=== PATIENT | female | born 1970 | race Caucasian/White ===

== ENCOUNTER 2019-06-24 14:08 | Inpatient (IN) | payer OTHER ==
[~2019-06-24] VITALS: Ht 157.5 cm; Wt 98.0 kg
[~2019-06-24 14:08] MED LIST: CELEXA40 MG PO; CETAPHIL473 ML TOP; DIFLUCAN150 MG; ESTRACE2 MG PO; EUCERIN CREME57 GM TOP; HYDROXYZINE HCL25 M2 PO; KETOCONAZOLE TOP; NORCO 5-325 TA1 EACH PO; PHENERGAN 25 MG25 M1 PO; VISTARIL 25 MG25 M1 PO; ZANTAC 150MG T150 M1 PO; ZYRTEC10 M5 PO
[2019-06-24 18:30] VITALS: BP 131/68
--- NOTE | 2019-06-24 18:33 | NUR ---
ASSESSMENT COMPLETE. PT ADMITTED WITH COLITIS AND POSS GI BLEED. PT TRASNFERRED FROM [facility]. PT IS ALERT AND ORIENTED X4. PT IS CRYING AND DRY HEAVING UPON ADMISSION. REPORT TAKEN FROM NURSE AT [facility], DR CAMPUZANO NOTIFIED OF PT BEING ADMITTED AND NEW ORDERS PLACED. PT HAS IV FLUIDS INFUSING. PHENERGAN GIVEN FOR NAUSEA. PT IS UP ONE ASSIST DUE TO WEAKNESS TO BSC. BLOOD NOTED IN STOOL. NEED STOOL AND URINE SAMPLE. PT IS ON ROOM AIR, VSS. SEE ASSESSMENT AND VITALS FOR OTHER DETAILS. JUSTEN AT BEDSIDE NOW. CALL LIGHT WITHIN REACH, WILL CONTINUE PLAN OF CARE
[2019-06-24 19:21] LABS: ABSOLUTE BASOPHILS 0.1 thou/uL (0.0-0.2); ABSOLUTE EOSINOPHILS 0.1 thou/uL (0.0-0.7); ABSOLUTE MONOCYTES 0.7 thou/uL (0.0-1.2); BASOPHILS 0.6 %; EOSINOPHILS 0.8 %; HEMATOCRIT 37.7 % (37.0-47.0); HEMOGLOBIN 12.6 gm/dL (12.0-15.0); LYMPHOCYTES 22.8 %; MCH 27.1 pg (26.0-34.0); MCHC 33.3 g/dL (28.0-37.0); MCV 81.3 fL (80.0-100.0); MONOCYTES 8.4 %; MPV 8.9 fl. (7.2-11.1); NUCLEATED RBCS 0 /100WBC; PLATELET COUNT* 193 thou/uL (150-400); POLYS 67.4 %; RBC 4.64 mil/uL (4.20-5.00); RDW-CV 12.4 % (10.5-14.5); WBC 8.9 thou/uL (4.0-11.0)
[2019-06-24 19:26] LABS: CALCIUM 8.4 mg/dL (8.5-10.1); CREATININE 0.6 mg/dL (0.6-1.3)
[2019-06-24 19:31] LABS: ALBUMIN 2.7 g/dL (3.4-5.0); TOTAL BILIRUBIN 0.6 mg/dL (<0.1-1.0); TOTAL PROTEIN 5.8 g/dL (6.4-8.2)
[2019-06-24 21:36] LABS: URINE BILIRUBIN NEGATIVE (Negative); URINE BLOOD 1+ (Negative); URINE CLARITY CLEAR; URINE COLOR YELLOW; URINE GLUCOSE-RANDOM NEGATIVE (Negative); URINE LEUKOCYTES NEGATIVE (Negative); URINE NITRITE NEGATIVE (Negative); URINE PROTEIN NEGATIVE (Negative); URINE SPECIFIC GRAVITY 1.025 (1.005-1.030); URINE UROBILINOGEN 0.2 E.U./dl (0.2-1.0)
[2019-06-24 21:38] LABS: URINE KETONES 3+ (Negative)
[2019-06-24 21:40] VITALS: BP 146/67
[2019-06-24 21:44] LABS: AMP/METHAMP Negative (Negative); BARBITURATES Negative (Negative); BENZODIAZEPINES Negative (Negative); COCAINE Negative (Negative); METHADONE Negative (Negative); OPIATES Negative (Negative); PCP Negative (Negative); THC Negative (Negative)
[2019-06-24 21:46] LABS: BACTERIA None Seen /HPF (None Seen); CASTS None Seen /LPF (None Seen); CRYSTALS None Seen /LPF (None Seen); SQUAMOUS 4-10 Moderate /LPF (0-3); URINE RBC 0-2 Rare /HPF (0-2); URINE WBC None Seen /HPF (0-5)
[2019-06-25 05:13] LABS: ABSOLUTE EOSINOPHILS 0.1 thou/uL (0.0-0.7); ABSOLUTE LYMPHOCYTES 1.8 thou/uL (0.8-5.3); ABSOLUTE MONOCYTES 0.8 thou/uL (0.0-1.2); ABSOLUTE NEUTROPHILS 4.9 thou/uL (1.6-8.1); BASOPHILS 0.5 %; EOSINOPHILS 1.8 %; HEMATOCRIT 34.7 % (37.0-47.0); HEMOGLOBIN 11.7 gm/dL (12.0-15.0); LYMPHOCYTES 23.2 %; MCH 27.2 pg (26.0-34.0); MCHC 33.7 g/dL (28.0-37.0); MCV 80.7 fL (80.0-100.0); MONOCYTES 9.9 %; MPV 8.8 fl. (7.2-11.1); NUCLEATED RBCS 0 /100WBC; PLATELET COUNT* 184 thou/uL (150-400); POLYS 64.6 %; RDW-CV 12.3 % (10.5-14.5); WBC 7.6 thou/uL (4.0-11.0)
[2019-06-25 05:38] LABS: PREALBUMIN 15.9 mg/dL (18.0-35.7)
[2019-06-25 05:43] LABS: ALBUMIN 2.5 g/dL (3.4-5.0); CALCIUM 8.3 mg/dL (8.5-10.1); CREATININE 0.6 mg/dL (0.6-1.3); POTASSIUM 3.1 mmol/L (3.5-5.1); TOTAL BILIRUBIN 0.4 mg/dL (<0.1-1.0); TOTAL PROTEIN 5.4 g/dL (6.4-8.2)
--- NOTE | 2019-06-25 06:20 | NUR ---
PATIENT SEEMED TO DO WELL ON ZOFRAN AND 50 NCG FENTANYL THROUGH THE NIGHT. SHE WAS ABLE TO REST AND REPORTED LESSENING OF NAUSEA AND PAIN. SHE IS HAVING LOOSE STOOLS AND HAS NOT ATE SINCE THURSDAY. SHE DID REPORT A HEADACHE AND I GAVE HER TYLENOL FOR PAIN. SHE IS TO SEE GI DOCTOR TODAY.
[2019-06-25 08:00] VITALS: BP 123/61
[2019-06-25 16:35] VITALS: BP 133/68
--- NOTE | 2019-06-25 18:45 | NUR ---
ASSUMED CARE OF PATIENT AT APPROX 0730. ALERT AND ORIENTED X4. ASSESSMENT COMPLETED AND CHARTED. VSS ON ROOM AIR. PAIN MINIMAL AND MANAGED WITH TYLENOL. FLUIDS AND ANTIBIOCS INFUSED ORDERED. PATING HAVING NAUSEA AND VOMITING THIS MORNING, GAVE ZOFRAN AND PROMETHAZINE WITH RELIEF EXPRESSED. PATIENT ON CLEAR LIQUIDS THIS MORNING. PATIENT ASKED TO ADVANCE DIET FOR LUNCH, FULL LIQUIDS ORDERED AND PATIENT TOLERATED WELL. CHANGED DIET TO REGULAR FOR DINNER, ORDERED PATIENT FULL LIQUIDS, MASHED POTATOES AND MAC N CHEESE FOR DINNER, PATIENT TOLERATED THIS WELL. PATIENT UP AD RAYMOND IN THE ROOM. STOOLS HAVE SLOWED DOWN AND ARE NOW SOFT. PATIENT HAD A SHOWER TODAY. CALL LIGHT WITHIN REACH. HOURLY ROUNDS COMPLETED. NURSING WILL CONTINUE TO MONITOR.
[2019-06-25 19:50] VITALS: BP 100/49
[2019-06-26 04:25] LABS: ABSOLUTE EOSINOPHILS 0.1 thou/uL (0.0-0.7); ABSOLUTE LYMPHOCYTES 1.5 thou/uL (0.8-5.3); ABSOLUTE MONOCYTES 0.5 thou/uL (0.0-1.2); ABSOLUTE NEUTROPHILS 3.1 thou/uL (1.6-8.1); BASOPHILS 0.9 %; EOSINOPHILS 2.4 %; HEMATOCRIT 33.7 % (37.0-47.0); HEMOGLOBIN 11.5 gm/dL (12.0-15.0); LYMPHOCYTES 27.9 %; MCH 27.5 pg (26.0-34.0); MCHC 34.1 g/dL (28.0-37.0); MCV 80.7 fL (80.0-100.0); MONOCYTES 9.1 %; MPV 8.5 fl. (7.2-11.1); NUCLEATED RBCS 0 /100WBC; PLATELET COUNT* 207 thou/uL (150-400); POLYS 59.7 %; RBC 4.18 mil/uL (4.20-5.00); RDW-CV 12.6 % (10.5-14.5); WBC 5.3 thou/uL (4.0-11.0)
[2019-06-26 04:27] LABS: PROTIME 10.1 Seconds (9.20-11.50)
[2019-06-26 04:43] LABS: PREALBUMIN 16.2 mg/dL (18.0-35.7)
[2019-06-26 04:58] LABS: ALBUMIN 2.6 g/dL (3.4-5.0); CALCIUM 8.5 mg/dL (8.5-10.1); CREATININE 0.5 mg/dL (0.6-1.3); TOTAL BILIRUBIN 0.3 mg/dL (<0.1-1.0); TOTAL PROTEIN 5.7 g/dL (6.4-8.2)
[2019-06-26 05:07] LABS: POTASSIUM 2.9 mmol/L (3.5-5.1)
--- NOTE | 2019-06-26 05:40 | NUR ---
PT ALERT AND ORIENTED. VSS ON RA. ASSESSMENT DOCUMENTED. MEDS GIVEN PER EMAR. PT HAD ONE EMESIS THIS SHIFT. BELIEVES SHE DID NOT TOLERATE HER DINNER WELL. PT ENCOURAGED TO ADVANCE DIET SLOWLY. K+ CRITICAL AT 2.9 THIS AM. RESULT MESAGED TO DR URIBE. RIP PROTOCOL INITIATED. CALL LIGHT WITHIN REACH. HOURLY ROUNDINGS MADE. BENADRYL AND MELATONIN GIVEN THIS SHIFT. PT SAYS IT HELPED. PT SLEPT MOST OF SHIFT. WILL CONTINUE TO MONITOR.
[2019-06-26 07:18] LABS: HEPATITIS B SURFACE AG Negative (Negative)
[2019-06-26 08:00] VITALS: BP 139/69
[2019-06-26 19:19] LABS: IgG 493 mg/dL (700-1600); IgM 56 mg/dL (26-217)
[2019-06-26 19:50] VITALS: BP 125/70
--- NOTE | 2019-06-26 20:17 | NUR ---
UP AD RAYMOND IN ROOM. ALERT AND ORIENTED X4. DENIES NEED FOR PAIN MEDICATION. IV NAUSEA MEDICATION GIVEN WITH ONLY SOME RELIEF. DR NOTIFIED AND NEW ORDERS NOTED. NEW MEDICATION HELPFUL WITH NAUSEA. CONTINUES ON IV ANTIBIODICS WITHOUT ADVERSE REACTIONS. IV POTASSIUM INFUSING WITHOUT DIFFICULT. PATIENT REFUSED TO LET US START A SECOND IV, WANTS TO WAIT FOR PICC LINE ON 06/27. ATE SOME CLEAR LIQUIDS THIS EVENING. PROGRESSING TOWARD DISCHARGE GOAL. CALL LIGHT WITHIN REACH.
[2019-06-27 00:39] LABS: ABSOLUTE BASOPHILS 0.1 thou/uL (0.0-0.2); ABSOLUTE EOSINOPHILS 0.2 thou/uL (0.0-0.7); ABSOLUTE LYMPHOCYTES 2.4 thou/uL (0.8-5.3); ABSOLUTE MONOCYTES 0.8 thou/uL (0.0-1.2); ABSOLUTE NEUTROPHILS 4.3 thou/uL (1.6-8.1); BASOPHILS 0.6 %; EOSINOPHILS 3.1 %; HEMATOCRIT 36.4 % (37.0-47.0); HEMOGLOBIN 12.3 gm/dL (12.0-15.0); LYMPHOCYTES 31.3 %; MCH 27.3 pg (26.0-34.0); MCHC 33.8 g/dL (28.0-37.0); MCV 80.5 fL (80.0-100.0); MONOCYTES 10.3 %; MPV 8.4 fl. (7.2-11.1); NUCLEATED RBCS 0 /100WBC; PLATELET COUNT* 253 thou/uL (150-400); POLYS 54.7 %; RBC 4.52 mil/uL (4.20-5.00); RDW-CV 12.2 % (10.5-14.5); WBC 7.8 thou/uL (4.0-11.0)
[2019-06-27 00:46] LABS: CALCIUM 9.2 mg/dL (8.5-10.1); CREATININE 0.7 mg/dL (0.6-1.3); MAGNESIUM 1.7 mg/dL (1.8-2.4); POTASSIUM 4.3 mmol/L (3.5-5.1)
--- NOTE | 2019-06-27 07:41 | NUR ---
PT ALERT AND ORIENTED. VSS ON RA. ASSESSMENT DOCUMENTED. PT SAYS NAUSEA IS BEING CONTROLLED BETTER NOW. PT DENIES PAIN THIS SHIFT. K+ REPLACED AND IS 4.3. MG+ BEING REPLACED PER PROTOCOL. PICC LINE TODAY. TPN POSSIBLY TODAY. PT FEELS SHE MAY WANT TO TRY REGULAR DIET AGAIN. ISOLATION IN PLACE. MELATONIN GIVEN FOR SLEEP. PT SAYS SHE SLEPT GOOD BUT OFF AND ON. CALLL IGHT WITHIN REACH. HOURLY ROUNDINGS MADE. WILL CONTINUE TO MONITOR.
[2019-06-27 15:09] LABS: ANA INTERPRETATION Negative (Negative)
[2019-06-27 15:48] VITALS: BP 100/67
--- NOTE | 2019-06-27 17:56 | NUR ---
ASSESSMENT COMPLETE. PT ALERT AND ORIENTED X4. PT DENIES NEED FOR PAIN AND NAUSEA MEDICATION. TOLERATING SMALL AMOUNT OF FOOD. PT DRINKING WATER. ISOLATION IN PLACE. INFECTIOUS DISEASE. PT IS UP AD RAYMOND WITH STEADY GAIT. NEW IV PLACED WITH INFUSION IN LEFT FA. SEE ASSESSMENT AND VITALS FOR OTHER DETAILS. CALL LIGHT WITHIN REACH, WILL CONTINUE PLAN OF CARE
[2019-06-27 21:00] VITALS: BP 122/70
--- NOTE | 2019-06-28 06:56 | NUR ---
PATIENT SLEPT MOST OF THE NIGHT. PATIENT HAD NO COMPLAINTS OF PAIN OR NAUSEA. IV REMAINS SALINE LOCKED. PATIENT IS POSSIBLY GOING HOME TODAY. WILL CONTINUE TO MONITOR.
--- NOTE | 2019-06-28 10:15 | CON ---
[address] [address] CONSULTATION Name: RANDALL DAUGHERTY Room: [address] IN M.R.#: [id number] Admission: 06/24/19 Attend Phys: Keara Banks MD Discharge: Date of : 72 Report #: [id number] THIS REPORT FOR: //name// CC: KEARA Banks FAM unknown Priyank Vivar Kari Nicolas NP DATE OF SERVICE: 06/25/2019 REFERRING PHYSICIAN: Keara Banks MD REASON FOR CONSULTATIO N: Abdominal pain and bloody diarrhea. IMPRESSION: 1. Acute bloody diarrhea associated with nausea, vomiting, dehydration, abdominal pain -- suspect infectious colitis plus or minus ischemic colitis. 2. Abnormal stool culture positive for "Shigella-like toxin" 3. Elevated liver function tests of uncertain significance. 4. Gastroesophageal reflux disease. RECOMMENDATIONS: 1. Agree with the patient being on IV fluids, IV antibiotics, antiemetics, and parenteral pain medications. 2. We will add some Bentyl 10 mg p.o. every 4-6 hours as needed for lower abdominal cramping. 3. Await Infectious Disease input regarding isolation and whether or not to alert the health department of possible Shigella or toxic E. coli infection. 4. We will hold off on endoscopic evaluation of her lower GI tract for now, but if she does not continue to improve, she may need to undergo a colonoscopy as expected. I am hopeful that she will be improved with just IV fluids, IV antibiotics, etc. 5. We should also have her avoid any antidiarrheals whatsoever. 6. We would also discontinue Lovenox secondary to her bloody diarrhea. HISTORY OF PRESENT ILLNESS: The patient is a very pleasant 48-year-old white female who presented to [facility] with complaints of about 3-4 day history of abdominal pain associated with nausea, vomiting, diarrhea, and bloody stools. She had been feeling poorly for about 4 days before she went to the Emergency Room and was treated there with IV fluids. It is unclear whether or not she had any IV antibiotics or not, but in reviewing the records from their facility, it does appear that she was getting some IV Cipro and Flagyl. She has never had anything like this in the past, this is all acute in nature. Normal bowel frequency can be sometimes loose at times secondary to her previous cholecystectomy state. She was transferred from [facility] [place] [address] CONSULTATION Name: RANDALL DAUGHERTY Room: [address]#: [id number] Admission: 06/24/19 Attend Phys: Keara Banks MD Discharge: Date of : 72 Report #: [id number] input and she is now here for the same. She has no known family history of inflammatory bowel disease, colon polyps, or colon cancer. She has undergone endoscopic studies of her lower GI tract in the past, last of which was performed over 10 years ago. She has also had elevated liver function tests in the past and underwent a full diagnostic evaluation of the same and had a liver biopsy, which revealed steatohepatitis with minimal fibrosis. There was no evidence for autoimmune liver disease, primary bile duct disease, etc. ALLERGIES: PENICILLIN AND MORPHINE. MEDICATIONS: At home include estradiol, Flexeril, pantoprazole, citalopram, and p.r.n. ranitidine. PAST MEDICAL AND SURGICAL HISTORY: Remarkable for previous cholecystectomy. She has had history of elevated liver function tests as I mentioned above in the past. She had some problem with intermittent reflux, but nothing been severe. She also has problem with chronic itching of uncertain significance. She has some anxiety and depression. She had previous C-sections in the past. She had kidney stones with kidney stents and lithotripsy. She has had stone removal as well. She had appendectomy. SOCIAL HISTORY: The patient is . She does not smoke or drink. FAMILY HISTORY: Negative. PHYSICAL EXAMINATION: GENERAL: Pleasant 48-year-old white female who is awake and alert. CARDIOPULMONARY: Revealed a regular rate and rhythm. LUNGS: Clear. ABDOMEN: Soft. She was tender to touch and percussion to the right lower quadrant and right upper quadrant. She has voluntary guarding, but no involuntary guarding. LABORATORY DATA: From the 06/24/2019 revealed a white count of 8.9, hemoglobin 12.6, platelet count of 193,000. Her sodium 137, potassium 3.0, chloride 103, bicarbonate is 20, BUN 6, creatinine 0.6. Her total bilirubin is 0.6, alkaline phosphatase 192, AST 65, ALT 203. These were markedly elevated prior to admission at [facility]. CT scan of the abdomen and pelvis was sent over for review, and I reviewed it and agreed with the findings of thickening of the ascending and transverse colon. I did not see any pericolonic stranding. I did not see anything to suggest [place] [address] CONSULTATION Name: RANDALL DAUGHERTY Room: [address] IN M.Tressa.#: [id number] Admission: 06/24/19 Attend Phys: Keara Banks MD Discharge: Date of : 72 Report #: [id number] DISCUSSION: 1. At the present time, I would proceed with symptomatic and supportive care as well as IV antibiotics. Await Infectious Disease input. 2. We will hold off on endoscopic evaluation of her lower GI tract and follow her while she is in the hospital. I have discussed the plans with the patient as well as her at the bedside and they are agreeable to the same. <ELECTRONICALLY SIGNED> By: Clement Glass DO 06/28/19 1015 [id number] [id number] Glass DO /nt
[2019-06-28] MEDS ORDERED: HYDROXYZINE PAM25 M1 PO (10:45)
[2019-06-28 10:46] VITALS: BP 122/70
[2019-06-28] MEDS ORDERED: FLORASTOR250 MG PO (11:31)
[2019-06-28 11:32] VITALS: BP 122/70
[2019-06-28] MEDS ORDERED: BENTYL 10 MG CA10 M1 PO (11:40)
[2019-06-28 12:31] VITALS: BP 122/70
--- NOTE | 2019-06-28 12:32 | NUR ---
ASSESSMENT COMPLETE. PT DC HOME. PRESCRIPTION AND DC INSTRUCTIONS GIVEN. ALL BELONGINGS SENT WITH PT. PT WILL FOLLOW UP WITH DR HORVATH IN [address] Kinney IN 4-6 WEEKS.
--- NOTE | 2019-07-31 15:03 | CON ---
[address] [address] CONSULTATION Name: RANDALL DAUGHERTY Room: [address] IN .#: [id number] Admission: 06/24/19 Attend Phys: Corona Banks MD Discharge: 06/28/19 Date of : 72 Report #: [id number] THIS REPORT FOR: //name// CC: Corona Banks [facility] unknown DATE OF SERVICE: 06/26/2019 CONSULTATION: Infectious diseases. HISTORY OF PRESENT ILLNESS: The patient is a 48-year-old white female who presents to [facility] ER on 06/23/2019 complaining of 2 days of nausea; vomiting; diarrhea, sometimes bloody and severe abdominal pain. The patient had elevated liver function tests and was toxic. She was admitted to the hospital there. Workup showed a Shigella toxin producing Enterobacteriaceae. She was empirically started on Cipro plus Flagyl. She was transferred to [place] were Infectious Disease and GI specialties are available. The patient is generally in good health without a lot of ongoing medical problems. She does have a history of kidney stones and has had a stent. She has anxiety. PAST SURGICAL HISTORY: Includes cholecystectomy, section, and then hysterectomy. ALLERGIES: THE PATIENT HAS ALLERGIES TO PENICILLIN AND MORPHINE. FAMILY HISTORY: Noncontributory. SOCIAL HISTORY: The patient is . [place] . No one in her [place] has been ill with a similar illness. She does not use tobacco, alcohol nor drugs. She has regular exposure to a number of animals including chickens, pigs, dogs, cats, llama. None of the animals have been particularly sick. The patient has no travel history. No significant tick bite or mosquito bite history. REVIEW OF SYSTEMS: The patient states she is already feeling much better. She was having fevers and chills. They were not measured. The patient was not complaining of headache, sinus congestion, sore throat, trouble swallowing. The patient is not having cough, chest pain, shortness of breath. The patient was complaining of nausea, vomiting, retching, severe abdominal pain, mostly in the right and left lower quadrants, as well as some bloody stool. No urinary symptoms. No pain in the extremities. Since receiving fluids and electrolyte replacement as well as medicine for pain, nausea and fever, the patient is feeling better, but still [place] [address] CONSULTATION Name: RANDALL DAUGHERTY Room: [address]#: [id number] Admission: 06/24/19 Attend Phys: Corona Banks MD Discharge: 06/28/19 Date of : 72 Report #: [id number] PHYSICAL EXAMINATION: GENERAL: The patient appears comfortable, not in any distress. VITAL SIGNS: Show the patient has been afebrile since coming to [facility]. SKIN: No rash nor lesions. ENT: Negative. MENTAL STATUS: Normal and appropriate. NECK: Supple. HEART: Sounds S1, S2. LUNGS: Clear. ABDOMEN: Belly is obese, soft without any significant tenderness. There is no guarding. No rebound. I cannot appreciate any mass nor organomegaly. EXTREMITIES: Unremarkable. LABORATORY DATA: The CBC here shows white count 5.3, hemoglobin 11.5, platelet 207,000. Electrolytes show sodium 139, potassium down to 2.9. It was 4.0 at [facility] 2 days ago. Chloride 104, bicarbonate 28, BUN 4, creatinine 0.5, glucose 109. Liver function tests are elevated. At [place], the alkaline phosphatase was 313. It is down to 143 two days later and the ALT has gone from 428 to 129, the AST has gone from [address] scan done at [place] showed thickening and stranding of the ascending and transverse colon suggestive of acute colitis. The stool pathogen panel was negative except for Shigella toxin producing Enterobacteriaceae. E. coli O157 was negative. IMPRESSION: Shigella toxin positive diarrhea with colitis. PLAN: Initially, Shigella was well known as a stool pathogen. Research demonstrated that Shigella produces a toxin (Shiga toxin), which is the mechanism of illness. Further research has shown that other bacteria can produce Shiga toxins including E. coli O157 as well as other gram negatives. Modern molecular biological tests are able to demonstrate Shiga toxin in the stool. This would be an explanation for the patient's symptoms. Treatment for Shiga toxin positive diarrhea is usually supportive in mild cases. The more severe cases such as the patient's, antibiotic therapy would be reasonable. Cipro would be the drug of choice. When the patient has more stable GI function, oral Cipro would actually be more effective than the IV because it will maintain higher levels in the colon. However with the patient with severe diarrhea and nausea with vomiting, IV Cipro may be a more reliable way of delivering the medicine. The patient may benefit from probiotics to try to replace normal wally and compete with toxin producing strain. The patient needs to be watched for signs of toxic colitis or perforation. At this time, there is nothing [place] [address] CONSULTATION Name: RANDALL DAUGHERTY Room: [address] IN [facility]#: [id number] Admission: 06/24/19 Attend Phys: Corona Banks MD Discharge: 06/28/19 Date of : 72 Report #: [id number] Generally young people will respond fairly quickly to antibiotics and replacements of loss of fluid and electrolytes. When the patient is able to maintain hydration and nutrition and keep the antibiotics and medications for symptoms under control, she could go home. She will need to be in isolation on a healthcare setting to prevent the spread of this organism to other patients. Contact isolation would be the appropriate order. I appreciate the opportunity of input in the care of the patient. It may be worthwhile to try to maintain IV access peripherally as I anticipate that she will respond fairly quickly to the medication and will probably not need a prolonged course of parenteral fluids and therapy. Dr. Vivar will return tomorrow for additional followup. Thank you for referring this patient for Infectious Disease consultation. <ELECTRONICALLY SIGNED> By: Amari Pisano MD 07/31/19 1503 1832 Amari Pisano MD /nt
== END 2019-06-28 12:30 | disposition home or self-care (01) | DRG 372 ==
LOC: M.3W 14:08
PROVIDERS: Internal Medicine Gastroenterology; ADMIT Internal Medicine
DX: A03.9 Shigellosis, unspecified (principal); E44.1 Mild protein-calorie malnutrition; K52.1 Toxic gastroenteritis and colitis; E86.0 Dehydration; K21.9 Gastro-esophageal reflux disease without esophagitis; R79.89 Other specified abnormal findings of blood chemistry; T45.515A Adverse effect of anticoagulants, initial encounter; F41.8 Other specified anxiety disorders; Z96.0 Presence of urogenital implants; E87.6 Hypokalemia; Z90.49 Acquired absence of other specified parts of digestive tract; Z98.891 History of uterine scar from previous surgery; Z90.710 Acquired absence of both cervix and uterus; Z88.6 Allergy status to analgesic agent; Z88.0 Allergy status to penicillin; Y92.89 Other specified places as the place of occurrence of the external cause; Z87.442 Personal history of urinary calculi; Z79.899 Other long term (current) drug therapy; Z68.39 Body mass index [BMI] 39.0-39.9, adult

== ENCOUNTER 2021-08-31 13:43 | Emergency (ER) | payer OTHER ==
[~2021-08-31] VITALS: Ht 170.2 cm; Wt 74.8 kg
[~2021-08-31 13:43] MED LIST changes: +BENTYL 10 MG CA10 M1 PO; +FLORASTOR250 MG PO; +HYDROXYZINE PAM25 M1 PO
[2021-08-31] MEDS ORDERED: PROTONIX40 M2 PO (13:48)
[2021-08-31] MEDS ORDERED: BACTRIM DS TAB1 EAC1 PO (14:58)
[2021-08-31 15:08] VITALS: BP 118/57
== END 2021-08-31 15:09 | disposition home or self-care (01) ==
LOC: M.ERS 13:43
DX: L03.113 Cellulitis of right upper limb (principal); Z90.710 Acquired absence of both cervix and uterus; Z90.49 Acquired absence of other specified parts of digestive tract; Z79.899 Other long term (current) drug therapy; Z88.5 Allergy status to narcotic agent; Z88.0 Allergy status to penicillin